=== PATIENT | female | born 1990 | race Two or more races ===

== ENCOUNTER → 2020-10-16 | Outpatient (CLI) | payer SELFPAY ==
--- NOTE | 2020-10-16 15:46 | RADIOLOGY REPORT (SQ) ---
EXAM DESCRIPTION: U/S [id number] TRNABD 1GES W/ODOP IMAGES COMPLETED DATE/TIME: 10/16/2020 2:47 pm REASON FOR STUDY: (Z34.01)ENCNTR FOR SUPRVSN OF NORMAL FIRST PREG, FIRST TRIMESTER Z34.01 ENCNTR FO R SUPRVSN OF NORMAL FIRST PREG, FIRST TRIMES COMPARISON: None. TECHNIQUE: Transvaginal static and realtime grayscale images acquired of the pelvis. Additional bashir cted spectral and color Doppler images recorded. All images stored on PACs. [facility] CLINICAL DATES: 8 WEEKS 6 DAYS. LIMITATIONS: None. FINDINGS: UTERUS: No visualized intrauterine . RIGHT ADNEXA: Normal ovary with normal vascular flow. Small involuting cyst is noted. No adnexal free fluid. There is a 3 x 3 x 2 cm solid right adnexal mass. Minimal peripheral flow. Possibly pedunculated fib roid. It is separate from the ovary. The patient's beta HCG has dropped from 221 on the 2 1 L5 today. Ectopic is not excluded but thought to be less likely with the following beta HCG. Follow-up beta HCG and ultrasound is recommended. LEFT ADNEXA: Normal ovary with normal vascular flow. No adnexal free fluid. No adnexal masses. FREE FLUID: None. OTHER: No other significant finding. IMPRESSION: NO VISUALIZED INTRA- OR EXTRAUTERINE . bHCG LEVEL TOO LOW TO EXPECT VISUALIZATION OF . ECTOPIC CANNOT BE EXCLUDED. FOLLOW-UP ULTRASOUND AND SERIAL BHCG LEVELS STRONGLY RECOMMENDED TO ACCURATELY ASSESS STATU S. APPROXIMATELY 3 X 3 X 2 CM SOLID RIGHT ADNEXAL MASS DESCRIBED ABOVE. FOLLOW-UP ULTRASOUND IS JAZMINE MMENDED. COMMENT: This report was called to DAWSON JIMENEZ CNM at15:39 on 10/16/2020. TECHNICAL DOCUMENTATION: JOB ID: [id number] [employer]™- All Rights Reserved Reading location - IP/workstation name: [email or web address]
== END ==
LOC: RAD 14:00
PROVIDERS: ATTEND Midwife
DX: O34.81 Maternal care for other abnormalities of pelvic organs, first trimester (principal); N83.291 Other ovarian cyst, right side; Z3A.08 8 weeks gestation of pregnancy
CPT/HCPCS: 36415; 76801; 84702